=== PATIENT | male | born 1995 | race Caucasian/White ===

== ENCOUNTER 2016-09-15 22:24 | Emergency (ER) | payer SELFPAY ==
[~2016-09-15] VITALS: Ht 154.9 cm; Wt 76.0 kg
[2016-09-15 22:28] VITALS: BP 118/71; PULSE 90; RESP 16; TEMP 98.7; O2SAT 100
--- NOTE | 2016-09-15 22:29 | PD ---
Physical Exam Time Seen by Provider: 22:28 Narrative 21 y/o male here with dental pain for 4 months, worse for the past two weeks. Vital signs reviewed. Seen at triage desk. Awaiting bed placement. Data Data Last Documented VS Vital Signs Date Time Temp Pulse Resp B/P Pulse Ox O2 Delivery O2 Flow Rate FiO2 09/15/16 22:28 98.7 90 16 118/71 100 MDM Medical Record Reviewed: Yes Supervised Visit with VENUS: No Scripts No Active Prescriptions or Reported Meds Rebel Metz September 15, 2016 22:29
--- NOTE | 2016-09-15 23:08 | PD ---
HPI Chief Complaint: Oral / Dental Pain or Problem Time Seen by Provider: 23:08 Travel History International Travel<30 days: No Contact w/Intl Traveler<30days: No Traveled to known affect area: No History of Present Illness HPI 21-year-old male presents to [facility] department for evaluation of dental pain. Patient states it is associated with his wisdom teeth. He states that his wasn' t either growing in incorrectly causing his teeth to crack and have cavities. This is resulting in him having significant pain. Patient states his pain has been ongoing intermittently for a long time but worse over the last 5-6 days. He states it is preventing him from going to work. Pain is a 10 out of 10, throbbing, constant. Denies any trauma. He has no other symptoms to report. PFSH Past Medical History ADD: Yes ADHD: Yes (ADHD) Anxiety: Yes Depression: Yes Cancer: No Cardiovascular Problems: No Developmental Delay: No Diabetes: No Diminished Hearing: No Psychiatric: Yes (PTSD, ANXIETY, DEPRESSION) Immunizations Current: Yes Migraines: No Seizures: No Thyroid Disease: No Ulcer: No Past Surgical History Oral Surgery: Yes (DENTAL) Other Surgery: No Social History Alcohol Use: No Tobacco Use: Yes (1/2 PACK DAILY) Substance Use: No Allergies-Medications (Allergen,Severity, Reaction): Coded Allergies: Sulfa (Verified Allergy, Severe, RASH, 09/15/16) Reported Meds & Prescriptions Reported Meds & Active Scripts Active Ultram (Tramadol HCl) 50 Mg Tab 50 Mg PO Q6H PRN Ibuprofen 600 Mg Tab 600 Mg PO Q8HR PRN Penicillin V Potassium 500 Mg Tab 500 Mg PO Q6H 10 Days Peridex Liq (Chlorhexidine Gluconate (Mouth) Liq) 0.12% Soln 15 Ml SWISH-SPIT BID Review of Systems Except as stated in HPI: all other systems reviewed are Neg Physical Exam Narrative GENERAL: Well-nourished, well-developed male patient in no acute distress SKIN: Focused skin assessment warm/dry. HEAD: Normocephalic. Without erythema or edema EYES: No scleral icterus. No injection or drainage. DENTAL: No loose teeth. Patient has significantly decayed third molars bilateral top and bottom. Gingiva is erythematous and edematous without any appreciable abscess. No malocclusion. NECK: Supple, trachea midline. No JVD or lymphadenopathy. CARDIOVASCULAR: Regular rate and rhythm without murmurs, gallops, or rubs. RESPIRATORY: Breath sounds equal bilaterally. No accessory muscle use. MUSCULOSKELETAL: No cyanosis, or edema. BACK: Nontender without obvious deformity. No CVA tenderness. Data Data Last Documented VS Vital Signs Date Time Temp Pulse Resp B/P Pulse Ox O2 Delivery O2 Flow Rate FiO2 09/15/16 22:28 98.7 90 16 118/71 100 Orders Ketorolac Inj (Toradol Inj) (09/15/16 23:15) Penicillin V Potassium (Veetids) (09/15/16 23:15) [facility] Medical Decision Making Medical Screen Exam Complete: Yes Emergency Medical Condition: Yes Medical Record Reviewed: Yes Differential Diagnosis Dental caries versus dentalgia versus periodontal disease versus pulpitis versus gingivitis Narrative Course 21-year-old male presents to emergency department for evaluation. Patient does have significantly decayed molars with associated gingival erythema and edema. He'll be started on oral antibiotic for this as well as some pain control. He is encouraged to seek dental evaluation and return immediately with any acute worsening of symptoms. Diagnosis Primary Impression: Dentalgia Additional Impression: Dental caries into pulp Referrals: Dentist Primary Care Physician Patient Instructions: Dental Caries (DC), General Instructions Departure Forms: Tests/Procedures, Work Release Enter return to work date: September 17, 2016 Additional Instructions: It is important that you seek dental evaluation Follow-up with primary care provider Return immediately with any acute worsening symptoms Med/Other Pt SpecificInfo: Prescription(s) given Scripts Tramadol (Ultram)50 Mg Tab50 Mg PO Q6H PRN (PAIN GREATER THAN 5) #12 TAB Ref 0 Prov:Jai Ortega MD 09/15/16 Ibuprofen 600 Mg [id number] Mg PO Q8HR PRN (PAIN) #30 TAB Ref 0 Prov:Elvia Butler 09/15/16 Penicillin V Potassium 500 Mg [id number] Mg PO Q6H 10 Days Ref 0 Prov:Elvia Butler 09/15/16 Chlorhexidine Gluconate (Mouth) Liq (Peridex Liq)0.12% Soln15 Ml SWISH-SPIT BID #473 ML Ref 0 Prov:Elvia Butler 09/15/16 Disposition: 01 DISCHARGE HOME Condition: Stable Elvia Butler September 15, 2016 23:08
[2016-09-15] MEDS ORDERED: PERI0.126 SWISH-SPIT (23:13)
[2016-09-15] MEDS ORDERED: IBUP-232 PO (23:13)
[2016-09-15] MEDS ORDERED: ULTR50TA5 PO (23:13)
[2016-09-15] MEDS ORDERED: PENI500T PO (23:13)
[2016-09-15] MEDS ORDERED: PENICILLIN V POTASSIUM 500 MG TAB PO ONE (23:15)
[2016-09-15] MEDS ORDERED: KETOROLAC TROMETHAMINE 60 MG/2 ML (IM) VIAL IM ONE (23:15)
== END 2016-09-16 00:09 | disposition home or self-care (01) ==
LOC: NEPK 22:24
DX: K08.89 Other specified disorders of teeth and supporting structures (principal); K02.9 Dental caries, unspecified; F17.210 Nicotine dependence, cigarettes, uncomplicated
CPT/HCPCS: 96372; 99282; J1885

== ENCOUNTER 2016-11-21 23:39 | Emergency (ER) | payer OTHER ==
[~2016-11-21 23:39] MED LIST: IBUP-232 PO; PENI500T PO; PERI0.126 SWISH-SPIT; ULTR50TA5 PO
[2016-11-21 23:41] VITALS: BP 125/70; PULSE 60; RESP 16; TEMP 98; O2SAT 99
[2016-11-22] MEDS ORDERED: HYDR-3533 PO (00:25)
[2016-11-22] MEDS ORDERED: NAPR500 PO (00:25)
[2016-11-22] MEDS ORDERED: PENI500T PO (00:25)
--- NOTE | 2016-11-22 00:25 | PD ---
HPI Chief Complaint: Oral / Dental Pain or Problem Time Seen by Provider: 00:10 Travel History International Travel<30 days: No Contact w/Intl Traveler<30days: No Traveled to known affect area: No History of Present Illness HPI Is a 21-year-old man who presents to the emergency department complaining of severe oral dental pain in the upper right third molar. He's had pain in this area before. He believes his wisdom teeth are coming in. Pains been worsening over the past 2 days or so. No fever. No drainage. No other complaints. History Past Medical History Medical History: Denies Significant Hx Social History Alcohol Use: No Tobacco Use: Yes (1/2 PACK DAILY) Allergies-Medications (Allergen,Severity, Reaction): Coded Allergies: Sulfa (Verified Allergy, Severe, RASH, 09/15/16) Reported Meds & Prescriptions Reported Meds & Active Scripts Active Ultram (Tramadol HCl) 50 Mg Tab 50 Mg PO Q6H PRN Ibuprofen 600 Mg Tab 600 Mg PO Q8HR PRN Penicillin V Potassium 500 Mg Tab 500 Mg PO Q6H 10 Days Peridex Liq (Chlorhexidine Gluconate (Mouth) Liq) 0.12% Soln 15 Ml SWISH-SPIT BID Review of Systems Except as stated in HPI: all other systems reviewed are Neg Physical Exam Narrative GENERAL: Well-appearing 21-year-old man, no acute distress. SKIN: Focused skin assessment warm/dry. HEENT: Normal appearance of the face. Is no obvious asymmetry or swelling. He has a fair amount of dental decay. In the area of interest in the upper right maxilla the third molar appears to be coming in and is somewhat decayed. There is some decay in the second molar as well. The entire area is tender to percussion. There is no obvious soft tissue swelling or drainage. NECK: Trachea midline. No JVD. Cardiovascular: Warm and well perfused. Pulmonary: Normal rate and effort. Data Data Last Documented VS Vital Signs Date Time Temp Pulse Resp B/P Pulse Ox O2 Delivery O2 Flow Rate FiO2 11/21/16 23:41 98.0 60 16 125/70 99 Room Air Orders Hydromorphone Pf Inj (Dilaudid Pf Inj) (11/22/16 00:30) Ketorolac Inj (Toradol Inj) (11/22/16 00:30) Amoxicil-Clavulanate (Augmentin) (11/22/16 00:30) MDM Medical Decision Making Medical Screen Exam Complete: Yes Emergency Medical Condition: Yes Differential Diagnosis Until pain, decay, abscess, infection, other Narrative Course Medical decision-making 21-year-old man who presents to the emergency department with dental pain. No obvious abscess or infection. Given dental resources. Recommend outpatient follow-up. Diagnosis Primary Impression: Dentalgia Additional Instructions: Take Pen-Vee K as prescribed. Take Lortab as needed for pain. Med/Other Pt SpecificInfo: Prescription(s) given Scripts Hydrocodone-Acetaminophen (Lortab)5-325 Mg Tab1-2 Tab PO Q6H PRN (PAIN) #12 TAB Prov:Dudley Soirano MD 11/22/16 Naproxen (Naprosyn)500 Mg [id number] Mg PO BID PRN (PAIN SCALE 1 TO 10) #20 TAB Prov:Dudley Soriano MD 11/22/16 Penicillin V Potassium 500 Mg [id number] Mg PO Q6H 10 Days Ref 0 Prov:Dudley Soriano MD 11/22/16 Disposition: 01 DISCHARGE HOME Condition: Stable Dudley Soriano MD Nov 22, 2016 00:25
[2016-11-22] MEDS ORDERED: HYDROmorphone HCL PF 1 MG/ML VIAL IM ONE (00:30)
[2016-11-22] MEDS ORDERED: AMOXICILLIN/CLAVULANATE K 875 MG TAB PO ONE (00:30)
[2016-11-22] MEDS ORDERED: KETOROLAC TROMETHAMINE 60 MG/2 ML (IM) VIAL IM ONE (00:30)
== END 2016-11-22 00:48 | disposition home or self-care (01) ==
LOC: NEPD 23:39
DX: K08.89 Other specified disorders of teeth and supporting structures (principal); F17.200 Nicotine dependence, unspecified, uncomplicated
CPT/HCPCS: 99284

== ENCOUNTER 2017-01-20 20:40 | Emergency (ER) | payer OTHER ==
[~2017-01-20 20:40] MED LIST changes: +HYDR-3533 PO; +NAPR500 PO
[2017-01-20 20:46] VITALS: BP 115/82; PULSE 74; RESP 15; TEMP 97.5; O2SAT 99
[2017-01-20] MEDS ORDERED: KETOROLAC TROMETHAMINE 60 MG/2 ML (IM) VIAL IM ONE (21:30)
[2017-01-20] MEDS ORDERED: ULTR50TA5 PO ×2 (21:31→21:40)
[2017-01-20] MEDS ORDERED: IBUP800T23 PO ×2 (21:31→21:40)
[2017-01-20] MEDS ORDERED: PENI500T PO ×2 (21:31→21:40)
[2017-01-20] MEDS ORDERED: PERI0.126 SWISH-SPIT ×2 (21:31→21:40)
--- NOTE | 2017-01-20 21:31 | PD ---
HPI Chief Complaint: Oral / Dental Pain or Problem Time Seen by Provider: 21:24 Travel History International Travel<30 days: No Contact w/Intl Traveler<30days: No Traveled to known affect area: No History of Present Illness HPI 21 year-old male presents to emergency department for evaluation of severe dental pain, involving his wisdom teeth. States that they have not grown incorrectly in her causing him severe pain. He states that he has been here before, in fact he has been here 3 times for this. He reportedly did not fill his prescriptions on his last visit because he stated he was busy working. Denies fever or chills. No new trauma. No difficulty eating. Pain is a constant, throbbing, 10 out of 10. No other symptoms to report. PFSH Past Medical History ADD: Yes ADHD: Yes (ADHD) Anxiety: Yes Depression: Yes Cancer: No Cardiovascular Problems: No Developmental Delay: No Diabetes: No Diminished Hearing: No Psychiatric: Yes (PTSD, ANXIETY, DEPRESSION) Immunizations Current: Yes Migraines: No Seizures: No Thyroid Disease: No Ulcer: No Past Surgical History Oral Surgery: Yes (DENTAL) Other Surgery: No Social History Alcohol Use: No Tobacco Use: Yes (1 PACK DAILY) Substance Use: No Allergies-Medications (Allergen,Severity, Reaction): Coded Allergies: Sulfa (Sulfonamide Antibiotics) (Unverified Allergy, Severe, RASH, 01/20/17 ) Reported Meds & Prescriptions Reported Meds & Active Scripts Active Ibuprofen 800 Mg Tab 800 Mg PO Q8H PRN Ultram (Tramadol HCl) 50 Mg Tab 50 Mg PO Q8H PRN Penicillin V Potassium 500 Mg Tab 500 Mg PO Q6H 10 Days Peridex Liq (Chlorhexidine Gluconate (Mouth) Liq) 0.12% Soln 15 Ml SWISH-SPIT BID 14 Days Lortab (Hydrocodone-Acetaminophen) 5-325 Mg Tab 1-2 Tab PO Q6H PRN Naprosyn (Naproxen) 500 Mg Tab 500 Mg PO BID PRN Penicillin V Potassium 500 Mg Tab 500 Mg PO Q6H 10 Days Ultram (Tramadol HCl) 50 Mg Tab 50 Mg PO Q6H PRN Ibuprofen 600 Mg Tab 600 Mg PO Q8HR PRN Peridex Liq (Chlorhexidine Gluconate (Mouth) Liq) 0.12% Soln 15 Ml SWISH-SPIT BID Review of Systems Except as stated in HPI: all other systems reviewed are Neg Physical Exam Narrative GENERAL: Well-nourished, well-developed male patient in no acute distress SKIN: Focused skin assessment warm/dry. HEAD: Normocephalic. No erythema or edema EYES: No scleral icterus. No injection or drainage. DENTAL: No loose or chipped teeth. Patient does have dental carry on the top right third molar. There is associated gingival erythema and edema. No appreciable abscess. No malocclusion. NECK: Supple, trachea midline. No JVD or lymphadenopathy. CARDIOVASCULAR: Regular rate and rhythm without murmurs, gallops, or rubs. RESPIRATORY: Breath sounds equal bilaterally. No accessory muscle use. Data Data Last Documented VS Vital Signs Date Time Temp Pulse Resp B/P (MAP) Pulse Ox O2 Delivery O2 Flow Rate FiO2 01/20/17 20:46 97.5 74 15 115/82 (93) 99 Room Air Orders Orders Ketorolac Inj (Toradol Inj) (01/20/17 21:30) MDM Medical Decision Making Medical Screen Exam Complete: Yes Emergency Medical Condition: Yes Medical Record Reviewed: Yes Differential Diagnosis Gingivitis versus pulpitis versus periodontal disease versus dental caries Narrative Course 21-year-old male presents to emergency department for evaluation of dental pain. Patient has been here 3 times for this. States he did not fill his medication last time. He has a gingival erythema and edema with no appreciable abscess. I told him the only way that this is going to ever improve his to seek the appropriate treatment and follow-up with a dentist and perhaps an oral surgeon if it is his wisdom teeth. He verbalizes understanding. He agrees to return immediately with any acute worsening of symptoms. Diagnosis Primary Impression: Dental caries into pulp Additional Impression: Dentalgia Referrals: Dentist Primary Care Physician Patient Instructions: Dental Caries (ED), General Instructions Additional Instructions: Follow-up with a dentist Return immediately to the emergency department with any acute worsening of symptoms Med/Other Pt SpecificInfo: Prescription(s) given Scripts Ibuprofen (Ibuprofen) 800 Mg Tab 800 MG PO Q8H Y for Pain/Inflammation, #30 TAB 0 Refills Prov: Elvia Butler 01/20/17 Tramadol (Ultram) 50 Mg Tab 50 MG PO Q8H Y for PAIN GREATER THAN 6, #15 TAB 0 Refills Prov: Elvia Butler 01/20/17 Penicillin V Potassium (Penicillin V Potassium) 500 Mg Tab 500 MG PO Q6H for Infection for 10 Days, #40 TAB 0 Refills Prov: Elvia Butler 01/20/17 Chlorhexidine Gluconate (Mouth) Liq (Peridex Liq) 0.12% Soln 15 ML SWISH-SPIT BID for 14 Days, #420 ML 0 Refills Prov: Elvia Butler 01/20/17 Disposition: 01 DISCHARGE HOME Condition: Stable Elvia Butler Jan 20, 2017 21:31
== END 2017-01-20 21:48 | disposition home or self-care (01) ==
LOC: NEPK 20:40
DX: K02.9 Dental caries, unspecified (principal); K08.89 Other specified disorders of teeth and supporting structures; Z72.0 Tobacco use
CPT/HCPCS: 96372; 99284; J1885

== ENCOUNTER 2017-02-08 23:24 | Emergency (ER) | payer OTHER ==
[~2017-02-08] VITALS: Ht 185.4 cm; Wt 74.0 kg
[~2017-02-08 23:24] MED LIST changes: +IBUP800T23 PO
[2017-02-08 23:25] VITALS: BP 118/57; PULSE 76; RESP 16; TEMP 99; O2SAT 97
--- NOTE | 2017-02-09 00:19 | PD ---
HPI Chief Complaint: Oral / Dental Pain or Problem Time Seen by Provider: 00:14 Travel History International Travel<30 days: No Contact w/Intl Traveler<30days: No Traveled to known affect area: No History of Present Illness HPI Patient is a 21-year-old male presented to the emergency room evaluation of right upper tooth pain. Patient states that his wisdom teeth are coming in causing his other teeth to crowd and turn black. Patient states the pain is aching and throbbing in states today out of 10. He reports taking 800 mg of ibuprofen 2 hours prior to arrival with no significant relief. Patient states the pain started a few days ago. He denies any fever, chills, nausea or vomiting, visual changes. PFSH Past Medical History ADD: Yes ADHD: Yes (ADHD) Anxiety: Yes Depression: Yes Cancer: No Cardiovascular Problems: No Developmental Delay: No Diabetes: No Diminished Hearing: No Psychiatric: Yes (PTSD, ANXIETY, DEPRESSION) Immunizations Current: Yes Migraines: No Seizures: No Thyroid Disease: No Ulcer: No Past Surgical History Oral Surgery: Yes (DENTAL) Other Surgery: No Social History Alcohol Use: No Tobacco Use: Yes (1 PACK DAILY) Substance Use: No Allergies-Medications (Allergen,Severity, Reaction): Coded Allergies: Sulfa (Sulfonamide Antibiotics) (Unverified Allergy, Severe, RASH, 02/08/17 ) Reported Meds & Prescriptions Reported Meds & Active Scripts Active Ibuprofen 800 Mg Tab 800 Mg PO Q8H PRN Ultram (Tramadol HCl) 50 Mg Tab 50 Mg PO Q8H PRN Penicillin V Potassium 500 Mg Tab 500 Mg PO Q6H 10 Days Peridex Liq (Chlorhexidine Gluconate (Mouth) Liq) 0.12% Soln 15 Ml SWISH-SPIT BID 14 Days Lortab (Hydrocodone-Acetaminophen) 5-325 Mg Tab 1-2 Tab PO Q6H PRN Naprosyn (Naproxen) 500 Mg Tab 500 Mg PO BID PRN Penicillin V Potassium 500 Mg Tab 500 Mg PO Q6H 10 Days Ultram (Tramadol HCl) 50 Mg Tab 50 Mg PO Q6H PRN Ibuprofen 600 Mg Tab 600 Mg PO Q8HR PRN Peridex Liq (Chlorhexidine Gluconate (Mouth) Liq) 0.12% Soln 15 Ml SWISH-SPIT BID Review of Systems Except as stated in HPI: all other systems reviewed are Neg HENT: Positive: Dental Difficulties Physical Exam Narrative GENERAL: Thin, well-developed alert male. SKIN: Warm and dry. HEAD: Normocephalic. MOUTH: Mucous membranes moist, no lesions, tongue and gums appear normal. Dental caries noted to the right upper second and third molars. No abscess no edema on gumline EYES: No scleral icterus. No injection or drainage. NECK: Supple, trachea midline. No JVD or lymphadenopathy. CARDIOVASCULAR: Regular rate and rhythm without murmurs, gallops, or rubs. RESPIRATORY: Breath sounds equal bilaterally. No accessory muscle use. GASTROINTESTINAL: Abdomen soft, non-tender, nondistended. MUSCULOSKELETAL: No cyanosis, or edema. BACK: Nontender without obvious deformity. No CVA tenderness. Data Data Last Documented VS Vital Signs Date Time Temp Pulse Resp B/P (MAP) Pulse Ox O2 Delivery O2 Flow Rate FiO2 02/08/17 23:25 99.0 76 16 118/57 (77) 97 Room Air [facility] Medical Decision Making Medical Screen Exam Complete: Yes Emergency Medical Condition: Yes Medical Record Reviewed: Yes Interpretation(s) Vital Signs Date Time Temp Pulse Resp B/P (MAP) Pulse Ox O2 Delivery O2 Flow Rate FiO2 02/08/17 23:25 99.0 76 16 118/57 (77) 97 Room Air Differential Diagnosis Dentalgia versus dental caries versus abscess versus malingering versus other Narrative Course Patient is a 21-year-old male that presented to emergency department for evaluation of right upper wisdom tooth pain. Patient's vital signs are stable. Medical records reviewed, patient has been to the emergency department several times over the last few months with the same complaint. He was encouraged to follow-up with a dentist each time. He states that he hasn't had time to go to the dentist. Patient requested pain medication. Patient was advised that he would be offered antibiotics as well as anti-inflammatory medication. He was advised that this is a chronic ongoing issue that needs to be evaluated by a dentist specifically. His mother was with him, patient became agitated and left the room. Discussed with mother holds dental clinics that have reduced fees. She states that she has list on her refrigerator. She was encouraged to offer him ibuprofen [id number] 6-800 mg every 6-8 hours as needed for pain. Additionally they can trial [id number] Orajel or similar agent. Diagnosis Primary Impression: Left against medical advice Livia Bradford Feb 09, 2017 00:19
== END 2017-02-09 00:20 | disposition left against medical advice (07) ==
LOC: NEPK 23:24
DX: K02.9 Dental caries, unspecified (principal); Z53.21 Procedure and treatment not carried out due to patient leaving prior to being seen by health care provider
CPT/HCPCS: 99281

== ENCOUNTER 2017-08-31 09:55 | Emergency (ER) | payer OTHER ==
[~2017-08-31] VITALS: Ht 185.4 cm; Wt 68.0 kg
[~2017-08-31 09:55] MED LIST changes: +IBUP1TAB7 PO; -IBUP800T23 PO; +TRAM50 PO; -ULTR50TA5 PO
[2017-08-31 09:58] VITALS: BP 109/61; PULSE 56; RESP 18; TEMP 98; O2SAT 98
[2017-08-31] MEDS ORDERED: TETANUS/DIPHTHERIA TOXOID ADULT 0.5 ML VIAL IM ONE (10:15)
[2017-08-31] MEDS ORDERED: LIDOCAINE 1%/EPINEPHrine 1:100,000 SOLN 20 ML VIAL INFIL ONE (10:15)
[2017-08-31] MEDS ORDERED: oxyCODONE/ACETAMINOPHEN 5 MG/325 MG TAB PO ONE (10:15)
--- NOTE | 2017-08-31 10:44 | RADRPT ---
EXAM DATE/TIME: 08/31/2017 10:16 [facility] COMPARISON: No previous studies available for comparison. INDICATIONS : Laceration to right anterior ankle, large piece of metal fell on leg. MEDICAL HISTORY : None. SURGICAL HISTORY : None. ENCOUNTER: Initial ACUITY: 1 day PAIN SCORE: 10/10 LOCATION: Right anterior ankle FINDINGS: Two view examination of the right tibia demonstrates no evidence of fracture or dislocation. Bony mi neralization is normal. Soft tissue irregularity to the anterior distal leg with adjacent gauze. No metallic or calcific radiopaque soft tissue densities. CONCLUSION: 1. No fracture seen. 2. No metallic foreign bodies seen. Alo Armando MD on August 31, 2017 at 10:41 Board Certified Radiologist. This report was verified electronically.
--- NOTE | 2017-08-31 11:23 | PD ---
Physical Exam Narrative I was asked by Dr. Haley to repair patient's laceration. Please see her documentation for full H&P. Data Data Last Documented VS Vital Signs Date Time Temp Pulse Resp B/P (MAP) Pulse Ox O2 Delivery O2 Flow Rate FiO2 08/31/17 09:58 98.0 56 18 109/61 (77) 98 Orders Orders Tibia/Fibula (Ap/Lat) (08/31/17 ) Oxycodone-Acetamin 5-325 Mg (Percocet (08/31/17 10:15) Lidocai-Epi 1%-1:100,000 Inj (Xylocaine- (08/31/17 10:15) Tetanus/Diphtheria Tox Adult (Tetanus/Di (08/31/17 10:15) MDM Supervised Visit with VENUS: No Procedures Procedure Narrative LACERATION REPAIR LOCATION: Right anterior carreon LENGTH: Approximately 9 cm in total length NUMBER OF STITCHES/MARLEN: 4 buried sutures and 9 marlen to close REPAIR: Verbal consent was obtained. The area of the laceration was cleaned and prepped. The laceration was infiltrated with lidocaine with epi. The wound was copiously irrigated and explored without evidence of foreign body, bony involvement, ligament injury, tendon injury, or neurovascular injury. The wound was closed using 4-0 Vicryl buried and marlen to close. This was a 2 layer repair. A sterile dressing was applied by nurse. The patient was advised to keep the affected area as clean and dry as possible using soap and water. There were no complications. Patient tolerated the procedure well. Scripts No Active Prescriptions or Reported Meds Jose Manuel Ford August 31, 2017 11:23
[2017-08-31] MEDS ORDERED: NORC5TAB PO (11:37)
--- NOTE | 2017-08-31 11:37 | PD ---
HPI Chief Complaint: Laceration/Skin Injury Time Seen by Provider: 10:03 Travel History International Travel<30 days: No Contact w/Intl Traveler<30days: No Traveled to known affect area: No History of Present Illness HPI Patient is a 22-year-old male who comes in with a laceration to his right leg. He says he dropped a piece of sheet metal on it just prior to arrival. He put a belt around his leg, but does not know if it was bleeding very much. He just complains of pain to the area. He denies any other injuries. He does not know when his last tetanus vaccine was. He did not take anything for the pain. Severity is moderate. PFSH Past Medical History ADD: Yes ADHD: Yes (ADHD) Anxiety: Yes Depression: Yes Cancer: No Cardiovascular Problems: No Developmental Delay: No Diabetes: No Diminished Hearing: No Psychiatric: Yes (PTSD, ANXIETY, DEPRESSION) Immunizations Current: Yes Migraines: No Seizures: No Thyroid Disease: No Ulcer: No Tetanus Vaccination: Unknown Past Surgical History Oral Surgery: Yes (DENTAL) Other Surgery: No Social History Alcohol Use: No Tobacco Use: Yes (1 PACK DAILY) Substance Use: Yes (DAILY MARIJUANA) Allergies-Medications (Allergen,Severity, Reaction): Coded Allergies: Sulfa (Sulfonamide Antibiotics) (Unverified Allergy, Severe, RASH, 02/08/17 ) Reported Meds & Prescriptions Reported Meds & Active Scripts Active No Active Prescriptions or Reported Medications Review of Systems Except as stated in HPI: all other systems reviewed are Neg General / Constitutional: No: Fever, Chills HENT: No: Headaches, Lightheadedness Cardiovascular: No: Chest Pain or Discomfort Respiratory: No: Shortness of Breath Gastrointestinal: No: Nausea, Vomiting Musculoskeletal: Positive: Pain Skin: Positive Other (Laceration) Neurologic: No: Weakness, Dizziness Physical Exam Narrative GENERAL: Awake and alert, in no acute distress. SKIN: 4 cm linear laceration to the right lower carreon. There is exposed tendon. HEAD: Atraumatic. Normocephalic. EYES: Pupils equal and round. No scleral icterus. ENT: Mucous membranes pink and moist. NECK: Trachea midline. No JVD. CARDIOVASCULAR: Regular rate and rhythm. No murmur appreciated. RESPIRATORY: No accessory muscle use. Clear to auscultation. Breath sounds equal bilaterally. MUSCULOSKELETAL: No obvious deformities. No clubbing. No cyanosis. No edema. Full range of motion of the right foot and ankle. Pedal pulses intact. Sensation intact. NEUROLOGICAL: Awake and alert. No obvious cranial nerve deficits. Motor grossly within normal limits. Normal speech. PSYCHIATRIC: Appropriate mood and affect; insight and judgment normal. Data Data Last Documented VS Vital Signs Date Time Temp Pulse Resp B/P (MAP) Pulse Ox O2 Delivery O2 Flow Rate FiO2 08/31/17 09:58 98.0 56 18 109/61 (77) 98 Orders Orders Tibia/Fibula (Ap/Lat) (08/31/17 ) Oxycodone-Acetamin 5-325 Mg (Percocet (08/31/17 10:15) Lidocai-Epi 1%-1:100,000 Inj (Xylocaine- (08/31/17 10:15) Tetanus/Diphtheria Tox Adult (Tetanus/Di (08/31/17 10:15) Crutches (08/31/17 11:31) MDM Medical Decision Making Medical Screen Exam Complete: Yes Emergency Medical Condition: Yes Medical Record Reviewed: Yes Differential Diagnosis Laceration versus fracture versus tendon injury Narrative Course Patient is a 22-year-old male comes in after sustaining a laceration to his right leg. Exam shows a deep wound to the right carreon. There does not appear to be any tendon or nerve damage. He had put a belt around his leg, but it was not very tight. This was removed, there was no bleeding. X-ray of the leg performed shows no acute abnormalities. Given pain medicine and tetanus vaccine updated. Wound repaired by JOSEPH Ford. Patient given crutches, because he says it hurts to walk on it. Given a prescription for a few pain pills. Advised take Tylenol or ibuprofen and apply ice. Advised to return for staple removal. Advised to return to the ED as needed for any worsening symptoms. Diagnosis Primary Impression: Laceration of leg Qualified Codes: S81.811A - Laceration without foreign body, right lower leg, initial encounter Patient Instructions: General Instructions, Laceration (ED) Additional Instructions: Return in 12-14 days for staple removal. Keep your wound clean and dry. Return anytime for any signs of infection. Take Tylenol or ibuprofen and apply ice as needed for pain. He can take a pain pill for severe pain. Return for any worsening symptoms. Scripts Hydrocodone-Acetaminophen ([place]) 5 Mg-325 Mg Tab 1 TAB PO Q6H Y for PAIN, #6 TAB 0 Refills Prov: Safia Haley MD 08/31/17 Disposition: 01 DISCHARGE HOME Condition: Stable Safia Haley MD August 31, 2017 11:37
[2017-08-31 11:56] VITALS: BP 128/78
== END 2017-08-31 11:57 | disposition home or self-care (01) ==
LOC: PHED 09:55
DX: S81.811A Laceration without foreign body, right lower leg, initial encounter (principal); F90.9 Attention-deficit hyperactivity disorder, unspecified type; F32.9 Major depressive disorder, single episode, unspecified; F43.10 Post-traumatic stress disorder, unspecified; F17.200 Nicotine dependence, unspecified, uncomplicated; W45.8XXA Other foreign body or object entering through skin, initial encounter; Z88.2 Allergy status to sulfonamides; Z23 Encounter for immunization
CPT/HCPCS: 12034; 73590; 90471; 90714; 99283; E0113

== ENCOUNTER 2017-09-14 20:06 | Emergency (ER) | payer OTHER ==
[~2017-09-14] VITALS: Ht 185.4 cm; Wt 75.0 kg
[~2017-09-14 20:06] MED LIST changes: -HYDR-3533 PO; -IBUP-232 PO; -IBUP1TAB7 PO; -NAPR500 PO; +NORC5TAB PO; -PENI500T PO; -PERI0.126 SWISH-SPIT; -TRAM50 PO
[2017-09-14 20:17] VITALS: BP 137/67; PULSE 90; RESP 16; TEMP 99; O2SAT 98
--- NOTE | 2017-09-14 20:34 | PD ---
HPI Chief Complaint: Wound/Suture/Staple Re-Check Time Seen by Provider: 20:31 Travel History International Travel<30 days: No Contact w/Intl Traveler<30days: No Traveled to known affect area: No History of Present Illness HPI Patient comes emergency department for possible removal marlen were placed 14 days ago to his right anterior carreon. 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 Patient reports continues to have tenderness around the site is worse to palpation in certain movement. Severity mild. Denies any fevers or other concerns. PFSH Past Medical History ADD: Yes ADHD: Yes (ADHD) Anxiety: Yes Depression: Yes Cancer: No Cardiovascular Problems: No Developmental Delay: No Diabetes: No Diminished Hearing: No Psychiatric: Yes (PTSD, ANXIETY, DEPRESSION) Respiratory: Yes (spontanious pnuomothorax) Immunizations Current: Yes Migraines: No Seizures: No Thyroid Disease: No Ulcer: No Tetanus Vaccination: < 5 Years Influenza Vaccination: No Past Surgical History Oral Surgery: Yes (DENTAL) Other Surgery: Yes (chest tube from spontanious pnuomothorax) Social History Alcohol Use: Yes (occasionally) Tobacco Use: Yes (1 PACK DAILY) Substance Use: Yes (DAILY MARIJUANA) Allergies-Medications (Allergen,Severity, Reaction): Coded Allergies: Sulfa (Sulfonamide Antibiotics) (Unverified Allergy, Severe, RASH, 09/14/17 ) Reported Meds & Prescriptions Reported Meds & Active Scripts Active Keflex (Cephalexin) 500 Mg Cap 500 Mg PO Q8H [place] (Hydrocodone-Acetaminophen) 5 Mg-325 Mg Tab 1 Tab PO Q6H PRN Review of Systems Except as stated in HPI: all other systems reviewed are Neg Physical Exam Narrative GENERAL: Well-developed, well nourished, in no acute distress, and non-ill appearing. SKIN: Focused skin assessment warm and dry. Well-healing laceration over anterior carreon. Minimally tender. No crepitus. No drainage noted. Small area of dehiscence noted lateral aspect. HEAD: Atraumatic. Normocephalic. EYES: Pupils equal and round. EOMI. No scleral icterus. No injection or drainage. ENT: No nasal bleeding or discharge. Mucous membranes pink and moist. NECK: Trachea midline. Supple. No nuclear rigidity. CARDIOVASCULAR: Regular rate and rhythm. No murmur appreciated. RESPIRATORY: No accessory muscle use. No respiratory distress. MUSCULOSKELETAL: No obvious deformities. No clubbing. No cyanosis. No edema. Full range of motion. NEUROLOGICAL: Awake and alert. No obvious cranial nerve deficits. Motor grossly within normal limits. Normal speech. PSYCHIATRIC: Appropriate mood and affect; insight and judgment normal. Data Data Last Documented VS Vital Signs Date Time Temp Pulse Resp B/P (MAP) Pulse Ox O2 Delivery O2 Flow Rate FiO2 09/14/17 20:17 99.0 90 16 137/67 (90) 98 Orders Orders Ed Discharge Order (09/14/17 20:35) MDM Medical Decision Making Medical Screen Exam Complete: Yes Emergency Medical Condition: Yes Differential Diagnosis Wound check, wound infection, staple removal Narrative Course Patient in no obvious distress upon re-evaluation. Patient was placed on antibiotics prophylactically secondary to small area of partial wound dehiscence and patient continues to expose wound to the elements. Patient was asked if they wanted to speak to my attending, which the patient did not wish to do at this time. Any questions/concerns in reference to patient diagnosis/ condition discussed and clarified prior to patient's discharge. Reinforced sheer importance of close follow up with patient's primary physician or primary care clinic or to return here in 7 days to have the last 2 marlen removed. Instructed patient to return to ED immediately, if symptoms return/worsen. Patient showed understanding of above instructions. Further instructions and recommendations were detailed in discharge paperwork. Patient ambulated without difficulty out of ED at discharge. Procedures Procedure Narrative Verbal consent was obtained. 7 marlen removed. 2 marlen were left and around area of dehiscence patient is instructed to return in a week to have those final to removed. Patient tolerated procedure well. There was no complications. Diagnosis Primary Impression: Encounter for wound re-check Additional Impression: Removal of marlen Patient Instructions: Acute Wounds (DC), General Instructions, Stitches Removal (DC) Additional Instructions: Follow-up with your primary care physician or return here in 1 week to have last 2 marlen removed. Take all medication as prescribed. Keep wound dry and clean as possible using soap and water. Use Neosporin to promote healing. Do not soak or submerge wound. Return to the emergency department if symptoms get worse. Med/Other Pt SpecificInfo: Prescription(s) given Scripts Cephalexin (Keflex) 500 Mg Cap 500 MG PO Q8H for Infection, #30 CAP 0 Refills Prov: Charles Monique MD 09/14/17 Disposition: 01 DISCHARGE HOME Condition: Stable Jose Manuel Ford September 14, 2017 20:34
[2017-09-14] MEDS ORDERED: CEPH-460 PO (20:35)
== END 2017-09-14 21:06 | disposition home or self-care (01) ==
LOC: NEPK 20:06
DX: S81.811D Laceration without foreign body, right lower leg, subsequent encounter (principal); X58.XXXD Exposure to other specified factors, subsequent encounter; Z48.02 Encounter for removal of sutures
CPT/HCPCS: 99281

== ENCOUNTER 2017-09-19 18:53 | Emergency (ER) | payer OTHER ==
[~2017-09-19] VITALS: Ht 182.9 cm; Wt 69.2 kg
[~2017-09-19 18:53] MED LIST changes: +CEPH-460 PO
[2017-09-19 18:56] VITALS: BP 143/65; PULSE 100; RESP 18; TEMP 98.1; O2SAT 97
[2017-09-19] MEDS ORDERED: VANCOMYCIN INJ 1,050 MG in SODIUM CHLOR 0.9% 250 ML INJ 250 ML IV ONE (20:30)
[2017-09-19] MEDS ORDERED: MORPHINE SULFATE 4 MG/ML INJ IV PUSH ONE (20:30)
--- NOTE | 2017-09-19 20:37 | PD ---
HPI Chief Complaint: Wound/Suture/Staple Re-Check Time Seen by Provider: 20:11 Travel History International Travel<30 days: No Contact w/Intl Traveler<30days: No Traveled to known affect area: No History of Present Illness HPI Patient is a 22-year-old male who returns to the emergency room for wound check. Patient reports that he was seen in the emergency room on August 31, 2017 after he accidentally suffered a laceration to his right anterior lower carreon from a chainsaw. Patient reports that he had 9 marlen placed at that time. Patient returned to the hospital on September 14, 2017 for suture removal, 7 sutures removed, to remain as patient had wound dehiscence. There are concerns as there was drainage from the wounds and wound dehiscence, patient was started on Keflex as an outpatient. Patient reports that he did not start on antibiotics as an outpatient as he did not have time to picker and packer a prescription and actually lost the prescription. Patient reports that he has noticed increased drainage from his wound, reports increased pain to his wound as well. Patient denies any fevers or chills, reports that tetanus is up-to-date. PFSH Past Medical History ADD: Yes ADHD: Yes (ADHD) Anxiety: Yes Depression: Yes Cancer: No Cardiovascular Problems: No Developmental Delay: No Diabetes: No Diminished Hearing: No Psychiatric: Yes (PTSD, ANXIETY, DEPRESSION) Respiratory: Yes (spontanious pnuomothorax) Immunizations Current: Yes Migraines: No Seizures: No Thyroid Disease: No Ulcer: No ?: Not Past Surgical History Oral Surgery: Yes (DENTAL) Other Surgery: Yes (chest tube from spontanious pnuomothorax) Social History Alcohol Use: Yes (occasionally) Tobacco Use: Yes (1 PACK DAILY) Substance Use: Yes (DAILY MARIJUANA) Allergies-Medications (Allergen,Severity, Reaction): Coded Allergies: Sulfa (Sulfonamide Antibiotics) (Unverified Allergy, Severe, RASH, 09/19/17 ) Reported Meds & Prescriptions Reported Meds & Active Scripts Active Keflex (Cephalexin) 500 Mg Cap 500 Mg PO Q8H Review of Systems General / Constitutional: No: Fever, Chills Eyes: No: Visual changes HENT: No: Headaches Cardiovascular: No: Chest Pain or Discomfort Respiratory: No: Shortness of Breath Gastrointestinal: No: Abdominal Pain Genitourinary: No: Dysuria Musculoskeletal: No: Pain Skin: Positive Other (Wound dehiscence with drainage and erythema), No Rash Neurologic: No: Weakness Psychiatric: No: Depression Endocrine: No: Polydipsia Hematologic/Lymphatic: No: Easy Bruising Physical Exam Narrative GENERAL: Mild distress SKIN: Focused skin assessment warm/dry. HEAD: Atraumatic. Normocephalic. EYES: Pupils equal and round. No scleral icterus. No injection or drainage. ENT: No nasal bleeding or discharge. Mucous membranes pink and moist. NECK: Trachea midline. No JVD. CARDIOVASCULAR: Regular rate and rhythm. No murmur appreciated. RESPIRATORY: No accessory muscle use. Clear to auscultation. Breath sounds equal bilaterally. GASTROINTESTINAL: Abdomen soft, non-tender, nondistended. Hepatic and splenic margins not palpable. MUSCULOSKELETAL: No obvious deformities. No clubbing. No cyanosis. No edema. Patient with a 6.5 cm linear area of wound dehiscence to his anterior right lower carreon, there is no streaking. There is serosanguineous drainage from his wound, pulses intact NEUROLOGICAL: Awake and alert. No obvious cranial nerve deficits. Motor grossly within normal limits. Normal speech. PSYCHIATRIC: Appropriate mood and affect; insight and judgment normal. Data Data Last Documented VS Vital Signs Date Time Temp Pulse Resp B/P (MAP) Pulse Ox O2 Delivery O2 Flow Rate FiO2 09/19/17 20:32 20 09/19/17 18:56 98.1 100 143/65 (91) 97 Orders Orders Wound Culture And Gram Stain (09/19/17 19:50) Complete Blood Count With Diff (09/19/17 20:23) Comprehensive Metabolic Panel (09/19/17 20:23) Prothrombin Time / Inr (Pt) (09/19/17 20:23) Act Partial Throm Time (Ptt) (09/19/17 20:23) Blood Culture (09/19/17 20:23) Iv Access Insert/Monitor (09/19/17 20:23) Ecg Monitoring (09/19/17 20:23) Oximetry (09/19/17 20:23) Morphine Inj (Morphine Inj) (09/19/17 20:30) Vancomycin Inj (Vancomycin Inj) (09/19/17 20:30) Tibia/Fibula (Ap/Lat) (09/19/17 ) Vancomycin Inj (Vancomycin Inj) (09/19/17 21:00) Diphenhydramine Inj (Benadryl Inj) (09/19/17 21:00) Mupirocin 2% Oint (Bactroban 2% Oint) (09/19/17 21:30) Potassium Chloride (Kcl) (09/19/17 21:45) Labs Laboratory Tests Test 09/19/17 20:40 White Blood Count 9.7 TH/MM3 Red Blood Count 4.86 MIL/MM3 Hemoglobin 14.6 GM/DL Hematocrit 43.0 % Mean Corpuscular Volume 88.4 FL Mean Corpuscular Hemoglobin 30.0 PG Mean Corpuscular Hemoglobin Concent 34.0 % Red Cell Distribution Width 12.4 % Platelet Count 266 TH/MM3 Mean Platelet Volume 8.2 FL Neutrophils (%) (Auto) 55.5 % Lymphocytes (%) (Auto) 29.5 % Monocytes (%) (Auto) 7.3 % Eosinophils (%) (Auto) 5.5 % Basophils (%) (Auto) 2.2 % Neutrophils # (Auto) 5.4 TH/MM3 Lymphocytes # (Auto) 2.9 TH/MM3 Monocytes # (Auto) 0.7 TH/MM3 Eosinophils # (Auto) 0.5 TH/MM3 Basophils # (Auto) 0.2 TH/MM3 CBC Comment DIFF FINAL Differential Comment Prothrombin Time 10.4 SEC Prothromb Time International Ratio 1.0 RATIO Activated Partial Thromboplast Time 28.3 SEC Blood Urea Nitrogen 18 MG/DL Creatinine 1.00 MG/DL Random Glucose 115 MG/DL Total Protein 6.9 GM/DL Albumin 3.9 GM/DL Calcium Level 8.4 MG/DL Alkaline Phosphatase 74 U/L Aspartate Amino Transf (AST/SGOT) 11 U/L Alanine Aminotransferase (ALT/SGPT) 22 U/L Total Bilirubin 0.4 MG/DL Sodium Level 140 MEQ/L Potassium Level 3.4 MEQ/L Chloride Level 106 MEQ/L Carbon Dioxide Level 27.2 MEQ/L Anion Gap 7 MEQ/L Estimat Glomerular Filtration Rate 94 ML/MIN [facility] Medical Decision Making Medical Screen Exam Complete: Yes Emergency Medical Condition: Yes Medical Record Reviewed: Yes Interpretation(s) Vital Signs Date Time Temp Pulse Resp B/P (MAP) Pulse Ox O2 Delivery O2 Flow Rate FiO2 09/19/17 18:56 98.1 100 18 143/65 (91) 97 Differential Diagnosis Wound dehiscence with infection Narrative Course Patient is a 22-year-old male who presents the emergency room with complaints of wound dehiscence with infection. Patient was supposed to be started on Keflex since September 14, 2017, he has not taken any of his antibiotics as he 1) forgot to fill his prescription, 2) lost the prescription. Patient returns to the emergency room for concern of infection. 2 marlen were removed from his wounds without difficulty During the course of the patients emergency department visit, the patients history, examination, and differential diagnosis were reviewed with the patient. The patient was placed on a consultative sales associate with oximetry and frequent blood pressure monitoring. The patient had an IV access obtained and blood work sent for analysis. Blood cultures were sent, x-ray of the tib/fib was ordered The patient was initially provided IV vancomycin. The patients laboratory studies were reviewed and remarkable for CBC & BMP Diagram 09/19/17 20:40 Total Protein 6.9, Albumin 3.9, Calcium Level 8.4 L, Alkaline Phosphatase 74, Aspartate Amino Transf (AST/SGOT) 11 L, Alanine Aminotransferase (ALT/SGPT) 22, Total Bilirubin 0.4 Radiology studies were reviewed and remarkable for Last Impressions Tibia/Fibula X-Ray 09/19/17 0000 Signed Impressions: Service Date/Time: Tuesday, September 19, 2017 20:42 - CONCLUSION: 1. Redemonstration of soft tissue laceration in the distal ankle without acute fracture or radiopaque foreign bodies. George Juárez MD Patient does not have an elevated white blood cell count, patient has been pancultured and has been given a dose of IV vancomycin. I do not believe that the patient needs to be admitted to the hospital this time, plan for trial of outpatient treatment with antibiotics as patient never started on his Keflex prescribed him the last time he was in the emergency room. 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 Plan to have patient return to the emergency room 48 hours for reevaluation of his wound. Signs and symptoms of when to return to the emergency room was reviewed with the patient in detail. Procedures Procedure Narrative Staple removal: 2 marlen removed from his right anterior carreon without difficulty Diagnosis Primary Impression: Cellulitis of leg without foot Patient Instructions: General Instructions Additional Instructions: Please provide patient with a copy of their lab work and studies at discharge* * Please follow up with your primary care doctor in 2-3 days Return to the ER if symptoms worsen or progress Return to the ER as needed Please take all antibiotics as prescribed Please follow-up with all cultures from today Please return to the emergency room in 48 hours for reevaluation of your wound Keep wound clean and dry and covered and apply Bactroban ointment twice a day Med/Other Pt SpecificInfo: Prescription(s) given Scripts Mupirocin Topical (Bactroban Topical) 22 Gm Cream 1 APPLIC TOPICAL BID for Mgmt Bacterial Infection, #1 TUBE 0 Refills Prov: Maggy Calvo DO 09/19/17 Cephalexin (Keflex) 500 Mg Cap 500 MG PO Q6H for Infection for 10 Days, #40 CAP 0 Refills Prov: Maggy Calvo DO 09/19/17 Doxycycline Hyclate (Doxycycline Hyclate) 100 Mg Cap 100 MG PO BID for Infection, #20 CAP 0 Refills Prov: Maggy Calvo DO 09/19/17 Disposition: 01 DISCHARGE HOME Condition: Stable Maggy Calvo DO September 19, 2017 20:37
[2017-09-19] MEDS ORDERED: VANCOMYCIN INJ 1,000 MG in SODIUM CHLOR 0.9% 250 ML INJ 250 ML IV ONE (21:00)
[2017-09-19] MEDS ORDERED: diphenhydrAMINE HCL 50 MG/ML VIAL IV PUSH ONE (21:00)
[2017-09-19 21:07] LABS: AUTOMATED NEUTROPHIL # 5.4 TH/MM3 (1.8-7.7); BASOPHIL # 0.2 TH/MM3 (0-0.2); BASOPHIL % 2.2 % (0.0-2.0); EOSINOPHIL # 0.5 TH/MM3 (0-0.4); EOSINOPHIL % 5.5 % (0.0-4.0); HEMOGLOBIN 14.6 GM/DL (13.0-17.0); LYMPH % 29.5 % (9.0-44.0); LYMPHOCYTE # 2.9 TH/MM3 (1.0-4.8); MEAN CELL VOLUME 88.4 FL (80.0-100.0); MEAN PLATELET VOLUME 8.2 FL (7.0-11.0); MONO % 7.3 % (0.0-8.0); MONOCYTE # 0.7 TH/MM3 (0-0.9); NEUT % 55.5 % (16.0-70.0); PLATELET COUNT 266 TH/MM3 (150-450); RED BLOOD COUNT 4.86 MIL/MM3 (4.50-5.90); RED CELL DISTRIBUTION WIDTH 12.4 % (11.6-17.2); WHITE BLOOD COUNT 9.7 TH/MM3 (4.0-11.0)
[2017-09-19 21:15] LABS: CHLORIDE 106 MEQ/L (98-107); SODIUM (NA) 140 MEQ/L (136-145)
[2017-09-19 21:18] LABS: ALBUMIN 3.9 GM/DL (3.4-5.0); BICARBONATE 27.2 MEQ/L (21.0-32.0); CALCIUM 8.4 MG/DL (8.5-10.1); GLUCOSE,RANDOM 115 MG/DL (74-106)
[2017-09-19 21:19] LABS: BLOOD UREA NITROGEN 18 MG/DL (7-18)
[2017-09-19 21:21] LABS: ALT (GPT) 22 U/L (12-78); AST (GOT) 11 U/L (15-37)
[2017-09-19 21:22] LABS: GLOMERULAR FILTRATION RATE 94 ML/MIN (>89)
[2017-09-19 21:23] LABS: TOTAL BILIRUBIN ADULT 0.4 MG/DL (0.2-1.0); TOTAL PROTEIN 6.9 GM/DL (6.4-8.2)
[2017-09-19 21:24] LABS: ALKALINE PHOSPHATASE 74 U/L (45-117)
[2017-09-19 21:25] LABS: PROTHROMBIN TIME - PATIENT 10.4 SEC (9.8-11.6)
[2017-09-19] MEDS ORDERED: MUPIROCIN 2% OINT 22 GM TUBE TOPICAL ONE (21:30)
--- NOTE | 2017-09-19 21:41 | RADRPT ---
EXAM DATE/TIME: 09/19/2017 20:42 [facility] COMPARISON: TIBIA/FIBULA RIGHT (AP/LAT), August 31, 2017, 10:16. INDICATIONS : Recheck of laceration to distal right tibia by hellen. MEDICAL HISTORY : None. SURGICAL HISTORY : None. ENCOUNTER: Subsequent ACUITY: 2 weeks PAIN SCORE: 10/10 LOCATION: Right distal Tibia FINDINGS: Two view examination of the right tibia demonstrates no evidence of fracture or dislocation. Redemon stration of soft tissue laceration in the distal ankle. No radiopaque foreign bodies. Bony mineraliza tion is normal. The soft tissue structures are intact. CONCLUSION: 1. Redemonstration of soft tissue laceration in the distal ankle without acute fracture or radiopaque foreign bodies. George Juárez MD on September 19, 2017 at 21:38 Board Certified Radiologist. This report was verified electronically.
[2017-09-19] MEDS ORDERED: POTASSIUM CHLORIDE 10 MEQ CONTROLLED RELEASE TAB PO ONE (21:45)
[2017-09-19] MEDS ORDERED: DOXY100C PO (22:18)
[2017-09-19] MEDS ORDERED: CEPH-460 PO (22:18)
[2017-09-19] MEDS ORDERED: MUPI2%T TOPICAL (22:19)
[2017-09-19 23:28] VITALS: BP 100/46; PULSE 73; RESP 18; TEMP 98; O2SAT 98
[2017-09-19 23:41] VITALS: RESP 18
== END 2017-09-19 23:48 | disposition home or self-care (01) ==
LOC: PHEFT 18:53
DX: L03.119 Cellulitis of unspecified part of limb (principal); B95.61 Methicillin susceptible Staphylococcus aureus infection as the cause of diseases classified elsewhere; F90.9 Attention-deficit hyperactivity disorder, unspecified type; F17.200 Nicotine dependence, unspecified, uncomplicated; F43.10 Post-traumatic stress disorder, unspecified; F32.9 Major depressive disorder, single episode, unspecified
CPT/HCPCS: 73590; 80053; 85025; 85610; 85730; 86403; 87040; 87070; 87077; 87186; 96365; 96366; 96375; 99284; J1200; J2270; J3370; J7050; 87205